=== PATIENT | female | born 1945 ===

== ENCOUNTER 2024-07-01 14:44 | Inpatient (IN) | payer OTHER ==
[~2024-07-01] VITALS: Ht 152.4 cm; Wt 81.6 kg
[~2024-07-01 14:44] MED LIST: ALPRAZOLAM ODT0.5 MG PO; GABAPENTIN100 MG PO; IYUZEH 0.005%1 EACH OP; LATANOPROST2.5 ML; MULTI VITAMIN1 EACH PO; NORFLEX100MG PO; OXYC1TAB9 PO; SYNTHROID112 MCG PO; XARELTO10 MG PO; ZOLOFT50 MG PO
[2024-07-01 15:15] VITALS: BP 113/62
[2024-07-07] MEDS ORDERED: ONDANSETRON HCL 2 MG/ML VIAL IV PRN (10:00)
[2024-07-07] MEDS ORDERED: OxyCODONE HCL/APAP UD (PERCOCET) PO PRN (10:00)
[2024-07-07] MEDS ORDERED: BUPIVACAINE HCL/Mpf 0.5% 10ML VIAL ONE (10:06)
[2024-07-07] MEDS ORDERED: ISOPROPYL ALCOHOL 30 ML OUNCE TOP ONE (10:06)
[2024-07-07] MEDS ORDERED: LIDOCAINE HCL 1%/EPINEPHRINE 20ML VIAL IJ ONE (10:06)
[2024-07-07] MEDS ORDERED: KETOROLAC TROMETHAMINE 30 MG VIAL ONE (10:06)
[2024-07-07] MEDS ORDERED: TRANEXAMIC ACID 100MG/1ML (1000MG) AMPUL IV ONE (10:07)
[2024-07-07] MEDS ORDERED: MORPHINE SULFATE 4 MG/ML CARTRIDGE IV SCH (12:00)
[2024-07-07] MEDS ORDERED: CEFAZOLIN SODIUM 1,000 MG VIAL IV SCH (12:00)
[2024-07-07] MEDS ORDERED: MORPHINE SULFATE 4 MG/ML VIAL IV ONE (13:05)
[2024-07-07 14:53] VITALS: BP 113/62
[2024-07-07 16:54] VITALS: BP 114/64
[2024-07-07 20:26] VITALS: BP 105/66
[2024-07-07] MEDS ORDERED: GABAPENTIN 100 MG CAPSULE PO SCH (21:00)
[2024-07-07] MEDS ORDERED: ORPHENADRINE CITRATE 100 MG TABLET PO SCH (21:00)
[2024-07-08 02:09] VITALS: BP 108/65
[2024-07-08 02:42] LABS: HEMATOCRIT 35.3 % (36.0-45.00); MEAN CELL VOLUME 83.5 fL (80.00-100.00); MEAN CORPUSCULAR HEMOGLOBIN 28.5 pg (27.00-32.0); MEAN CORPUSCULAR HGB CONC 34.2 g/dl (32.0-36.0); PLATELET COUNT 193 K/uL (150-450); RED BLOOD COUNT 4.22 M/uL (4.00-6.00); RED CELL DISTRIBUTION WIDTH 14.4 % (11.5-14.5)
[2024-07-08 08:00] VITALS: BP 107/55
[2024-07-08 09:22] VITALS: BP 104/70
[2024-07-08] MEDS ORDERED: Cyanocobalamin/Mecobalamin 1 TAB.SL SL SCH (13:43)
[2024-07-08] MEDS ORDERED: IRON FUM,PS/FOLIC ACID/VITC/B3 1 CAP CAPSULE PO SCH (13:43)
[2024-07-08] MEDS ORDERED: VITAMIN B COMPLEX 1 EACH PO SCH (17:00)
[2024-07-08 20:58] VITALS: BP 140/72
[2024-07-09] VITALS: BP 124/71
[2024-07-09 00:41] LABS: HEMATOCRIT 33.3 % (36.0-45.00); HEMOGLOBIN 11.1 g/dL (12.0-15.00); MEAN CELL VOLUME 83.2 fL (80.00-100.00); MEAN CORPUSCULAR HEMOGLOBIN 27.8 pg (27.00-32.0); MEAN CORPUSCULAR HGB CONC 33.3 g/dl (32.0-36.0); PLATELET COUNT 175 K/uL (150-450)
[2024-07-09 08:00] VITALS: BP 136/71
[2024-07-09] MEDS ORDERED: NORFLEX100MG PO (10:54)
[2024-07-09] MEDS ORDERED: GABAPENTIN100 MG PO (10:54)
[2024-07-09] MEDS ORDERED: OXYC1TAB9 PO (10:55)
[2024-07-09] MEDS ORDERED: XARELTO10 MG PO (10:58)
[2024-07-09] MEDS ORDERED: RIVAROXABAN 10 MG TAB PO STA (11:03)
== END 2024-07-09 20:43 | DRG 470 ==
LOC: O/R 07-07 05:11 → SURH 07-07 10:15 → OB/GYN 07-07 14:17
PROVIDERS: ADMIT Orthopaedic Surgery; ATTEND Orthopaedic Surgery
PROC: 0SRC0J9 Replacement of Right Knee Joint with Synthetic Substitute, Cemented, Open Approach (ICD-10-PCS; principal; 2024-07-07 10:15)
DX: M17.11 Unilateral primary osteoarthritis, right knee (principal); D62 Acute posthemorrhagic anemia; M85.661 Other cyst of bone, right lower leg; E03.9 Hypothyroidism, unspecified